=== PATIENT | female | born 2000 | race Caucasian/White ===

== ENCOUNTER 2019-10-16 04:28 | Emergency (ER) | payer MEDICAID, SELFPAY ==
[2019-10-16] VITALS (7 sets, daily range): BP systolic 113–121; BP diastolic 61–76; PULSE 70–91; RESP 16; TEMP 36.7; O2SAT 98–100; BMI 28.5
--- NOTE | 2019-10-16 04:29 | PC.NURSE ---
patient is 8 weeks , patient states she has a headache 10/10, chest pain rating 3/10. per patient, chest pain started at 0100 tonight after her right arm numbness.
--- NOTE | 2019-10-16 04:53 | XR_ITS ---
WS: [id number] PORTABLE CHEST HISTORY: cp COMPARISON: None available. Lungs are clear and well expanded. No pleural effusion or pneumothorax. Cardiac size: Normal. Mediastinum/Aorta: Normal mediastinum. No osseous abnormality seen. XR/XR chest 1V portable [id number] IMPRESSION: Unremarkable portable chest.
--- NOTE | 2019-10-16 04:57 | W.ED.CHESTPA ---
Documented by User: Beni Simental DO 10/16/19 05:57 HPI - Chest Pain General: Chief Complaint: Chest Pain Stated Complaint: HEADACHE Time Seen by Provider: 10/16/19 04:34 History of Present Illness: HPI narrative: 19-year-old female, states that she is 8 weeks , presents with right arm paresthesias, numbness to the tongue and face on the right side, and chest discomfort with headache starting around 1 AM. States that she was awake when this started. She has had headaches in the past, and notes that she has had CTs and MRIs that were negative. She had an ultrasound a couple of weeks ago showing a 6-week intrauterine , which is where she gets her 8-week dates. No fever, no shortness of breath, numbness is essentially resolved save some residual to the right upper extremity MD complaint: chest pain Onset (ago): hour(s) (4) Timing of current episode: episodic Prior episodes: No Onset: during rest Pain location: substernal and right chest Pain radiation: right arm Severity: moderate Quality: sharp Relieving factors: nothing Exacerbating factors: nothing Associated symptoms: Reports nausea; Deny dyspnea, fever(s), palpitations or vomiting Review of Systems Const: Denies: fever Eyes: Denies: change in vision or blurry vision ENMT: Denies: painful swallowing, Change in hearing, nose bleeds, post nasal drip or facial/sinus pain Card: Reports: chest pain; Denies: palpitations, irregular heart rhythm or edema Resp: Denies: shortness of breath, productive cough, non-productive cough or wheezing GI: Reports: nausea; Denies: vomiting : Denies: painful urination or blood in urine Musc: Denies: neck pain, back pain, redness or joint warmth Skin/Breast: Denies: rash, itching or redness Neuro: Reports: headache and dizziness; Denies: vertigo, confusion or seizure-like activity Psych: Denies: anxiety PFSH ED PFSH: Social History Smoking and tobacco status: former smoker Physical Exam Const: GENERAL APPEARANCE: well developed ORIENTATION/CONSCIOUSNESS: Yes oriented to person, Yes oriented to place and Yes oriented to time HENMT: COMMON NORMALS: normocephalic, external ears normal and external nose normal HEAD & SCALP: normocephalic; no scalp tenderness FACE & SINUS: normal facial exam NOSE: external nose normal and no nasal discharge EXTERNAL EAR: Yes external ears normal MOUTH: tongue normal THROAT: posterior oropharynx normal Eye: COMMON NORMALS: PERRL, EOMs intact bilaterally and conjunctivae normal EYELID: eyelids normal CONJUNCTIVA: Yes conjunctivae normal PUPIL: Yes PERRL Neck/C-Spine: COMMON NORMALS: full ROM GENERAL: No tracheal deviation Chest: COMMONS NORMALS: inspection of chest normal CHEST: No tenderness Resp: COMMON NORMALS: clear to auscultation bilaterally EFFORT & INSPECTION: No tachypneic, No respiratory distress, No retractions, No uses accessory muscles and No tracheal deviation AUSCULTATION: clear to auscultation bilaterally, no rhonchi, no wheezes and lung sounds not diminished Cardio: COMMON NORMALS: regular rate and regular rhythm RATE: regular rate RHYTHM: regular rhythm HEART SOUNDS: no murmurs PERIPHERAL PULSES: radial pulses present GI: INSPECTION: No abdominal distension AUSCULTATION: No hyperactive bowel sounds and No hypoactive bowel sounds PALPATION: Yes tender Details: Negative for other (epigastric), Yes guarding and No rigid PERCUSSION: no dullness to percussion and no tympanic to percussion : COMMON NORMALS: Yes no CVA tenderness BLADDER/KIDNEY EXAM: Yes no CVA tenderness Back/Pelvis: COMMON NORMALS: no CVA tenderness Neuro: SENSORIUM/ORIENTATION: Yes oriented to person, Yes oriented to place and Yes oriented to time Psych: COMMON NORMALS: mental status grossly normal Skin: COMMON NORMALS: no rashes or lesions noted GENERAL SKIN EXAM: no rashes or lesions noted Course Vital Signs: Vital signs: Vital Signs Temperature 98.1 F 10/16/19 04:28 Pulse Rate 70 10/16/19 06:36 Respiratory Rate 16 10/16/19 06:36 Blood Pressure 117/68 10/16/19 06:36 Pulse Oximetry 99 10/16/19 06:36 MDM - Chest Pain MDM Narrative: Medical decision making narrative: 19-year-old female with paresthesias to the right upper extremity, and right face. She has a headache. She is complaining of some chest pain. No cough, no fever. She says she is 8 weeks . Paresthesias are essentially resolved. She still has a headache. Labs are pending. She will be checked out to Dr. Coelho at shift change. Lab Data: Labs: Lab Results 10/16/19 10/16/19 10/16/19 Range/Units 05:25 05:46 05:46 WBC 7.9 (4.5-13.0) 10^3/ uL RBC 5.03 (4.1-5.3) 10^6/u L Hgb 14.1 (11.5-15.3) g/dL Hct 45.3 (37.0-47.0) % MCV 90.1 (81-99) fL MCH 28.0 (28.0-34.0) pg MCHC 31.1 (30.0-36.0) g/dL RDW 13.0 (12.1-15.1) % Plt Count 210 (130-400) 10^3/c mm MPV 11.3 H (7.4-10.4) fL Neut % (Auto) 77.7 % Lymph % (Auto) 16.3 % [place] % (Auto) 4.7 % Eos % (Auto) 0.5 % Baso % (Auto) 0.5 % Neut # (Auto) 6.1 (1.8-8.0) 10^3/u L Lymph # (Auto) 1.3 L (1.5-6.5) 10^3/u L [place] # (Auto) 0.4 (0.2-0.9) 10^3/u L Eos # (Auto) 0.0 (0.0-0.8) 10^3/u L Baso # (Auto) 0.0 (0.0-0.1) 10^3/u L Nucleated RBC % (a uto) 0 % Nucleated RBCs # 0.0 /100WBC Sodium 137 (136-145) mmol/L Potassium 3.9 (3.5-5.1) mmol/L Chloride 103 (98-107) mmol/L Carbon Dioxide 21 L (22-29) mmol/L Anion Gap 16.9 (5-19) BUN 10 (6-20) mg/dL Creatinine 0.6 (0.5-0.9) mg/dL GFR Calculation 127.5 (90-130) mL/min Glucose 98 (65-115) mg/dL Calculated Osmolal ity 280 L (285-295) mOsm/k g Calcium 9.7 (8.5-10.5) mg/dL Total Bilirubin 0.4 (0.15-1.2) mg/dL AST 21 (0-32) U/L ALT 15 (0-33) U/L Alkaline Phosphata se 82 (35-105) IU/L Total Protein 8.3 (6.6-8.7) g/dL Albumin 4.9 (3.5-5.2) g/dL Globulin 3.4 (1.3-4.6) g/dL Ser , Kiko i-Qnt 618790.00 mIU/mL Urine Color Yellow (Yellow) Urine Appearance Clear (CLEAR) Urine pH 5 (5-7) Ur Specific Gravit y 1.015 (1.005-1.030) Urine Protein Neg (Negative) Urine Glucose (UA) Norm (Normal) Urine Ketones 1+ H (Negative) Urine Blood Neg (Negative) Urine Nitrate Negative (Negative) Urine Bilirubin Neg (NEGATIVE) Urine Urobilinogen Norm (Negative) mg/dL Ur Leukocyte Gayle ase Negative (Negative) Discharge Plan Discharge Patient Disposition: Home, Self-Care Clinical Impression: Atypical chest pain Condition: Stable Discharge Diet: Usual diet Discharge Activity: Resume usual activity Activity Restrictions/Additional Instructions: Aloe up with your primary care doctor as needed return if you have further problems. Sign Out Sign Out Data: Patient Sign Out occurred on 10/16/19 at 06:48. Patient's care was discussed, and care was transferred from to Anson Coelho DO. Coding Level of Care Code ED Cardiac Cath Tech for Chg Fwd Exam Comprehensive Documented by User: Anson Coelho DO 10/16/19 07:00 HPI - Chest Pain General: Chief Complaint: Chest Pain Stated Complaint: HEADACHE Time Seen by Provider: 10/16/19 04:34 History of Present Illness: HPI narrative: 19-year-old female who was initially seen by Dr. Simental. Care assumed by myself at change of shift [facility] ED PFSH: Social History Smoking and tobacco status: former smoker Course Vital Signs: Vital signs: Vital Signs Temperature 98.1 F 10/16/19 04:28 Pulse Rate 70 10/16/19 06:36 Respiratory Rate 16 10/16/19 06:36 Blood Pressure 117/68 10/16/19 06:36 Pulse Oximetry 99 10/16/19 06:36 MDM - Chest Pain MDM Narrative: Medical decision making narrative: Reviewed case with Dr. Simental. Patient reports she previously had an ultrasound that confirmed an intrauterine her labs remain normal she has no evidence of hypoxia tachycardia or tachypnea. Chest x-ray was unremarkable as is no fever. At this point I do not see any signs of her having significant respiratory compromise neurologically she is intact we will go ahead and discharge her home have her follow-up with her primary care doctor she can return if she has further problems. Lab Data: Attestation: I reviewed the patient's lab results. Labs: Lab Results 10/16/19 10/16/19 10/16/19 Range/Units 05:25 05:46 05:46 WBC 7.9 (4.5-13.0) 10^3/ uL RBC 5.03 (4.1-5.3) 10^6/u L Hgb 14.1 (11.5-15.3) g/dL Hct 45.3 (37.0-47.0) % MCV 90.1 (81-99) fL MCH 28.0 (28.0-34.0) pg MCHC 31.1 (30.0-36.0) g/dL RDW 13.0 (12.1-15.1) % Plt Count 210 (130-400) 10^3/c mm MPV 11.3 H (7.4-10.4) fL Neut % (Auto) 77.7 % Lymph % (Auto) 16.3 % [place] % (Auto) 4.7 % Eos % (Auto) 0.5 % Baso % (Auto) 0.5 % Neut # (Auto) 6.1 (1.8-8.0) 10^3/u L Lymph # (Auto) 1.3 L (1.5-6.5) 10^3/u L [place] # (Auto) 0.4 (0.2-0.9) 10^3/u L Eos # (Auto) 0.0 (0.0-0.8) 10^3/u L Baso # (Auto) 0.0 (0.0-0.1) 10^3/u L Nucleated RBC % (a uto) 0 % Nucleated RBCs # 0.0 /100WBC Sodium 137 (136-145) mmol/L Potassium 3.9 (3.5-5.1) mmol/L Chloride 103 (98-107) mmol/L Carbon Dioxide 21 L (22-29) mmol/L Anion Gap 16.9 (5-19) BUN 10 (6-20) mg/dL Creatinine 0.6 (0.5-0.9) mg/dL GFR Calculation 127.5 (90-130) mL/min Glucose 98 (65-115) mg/dL Calculated Osmolal ity 280 L (285-295) mOsm/k g Calcium 9.7 (8.5-10.5) mg/dL Total Bilirubin 0.4 (0.15-1.2) mg/dL AST 21 (0-32) U/L ALT 15 (0-33) U/L Alkaline Phosphata se 82 (35-105) IU/L Total Protein 8.3 (6.6-8.7) g/dL Albumin 4.9 (3.5-5.2) g/dL Globulin 3.4 (1.3-4.6) g/dL Ser , Kiko i-Qnt 581269.00 mIU/mL Urine Color Yellow (Yellow) Urine Appearance Clear (CLEAR) Urine pH 5 (5-7) Ur Specific Gravit y 1.015 (1.005-1.030) Urine Protein Neg (Negative) Urine Glucose (UA) Norm (Normal) Urine Ketones 1+ H (Negative) Urine Blood Neg (Negative) Urine Nitrate Negative (Negative) Urine Bilirubin Neg (NEGATIVE) Urine Urobilinogen Norm (Negative) mg/dL Ur Leukocyte Gayle ase Negative (Negative) Discharge Plan Discharge Patient Disposition: Home, Self-Care Clinical Impression: Atypical chest pain Condition: Stable Discharge Diet: Usual diet Discharge Activity: Resume usual activity Activity Restrictions/Additional Instructions: Aloe up with your primary care doctor as needed return if you have further problems. Sign Out Sign Out Data: Patient Sign Out occurred on 10/16/19 at 06:48. Patient's care was discussed, and care was transferred from to Anson Coelho DO. Coding Level of Care Code ED Cardiac Cath Tech for Chg Fwd Exam Comprehensive
[2019-10-16 05:53] LABS: Basophils % 0.5 %; Eosinophils % 0.5 %; Hematocrit 45.3 % (37.0-47.0); Hemoglobin 14.1 g/dL (11.5-15.3); Lymphocytes # 1.3 10^3/uL (1.5-6.5); Lymphocytes % 16.3 %; Mean Corpuscular HGB Conc 31.1 g/dL (30.0-36.0); Mean Corpuscular Volume 90.1 fL (81-99); Mean Platelet Volume 11.3 fL (7.4-10.4); Monocytes # 0.4 10^3/uL (0.2-0.9); Monocytes % 4.7 %; Neutrophils # 6.1 10^3/uL (1.8-8.0); Neutrophils % 77.7 %; Nucleated Red Blood Cells % 0 %; Platelet Count 210 10^3/cmm (130-400); Red Blood Count 5.03 10^6/uL (4.1-5.3); White Blood Count 7.9 10^3/uL (4.5-13.0)
[2019-10-16 05:54] LABS: Add Urine Microscopic? NO
[2019-10-16 06:12] LABS: Bilirubin Urine Neg (NEGATIVE); Blood Urine Neg (Negative); Glucose Urine UA Norm (Normal); Ketones Urine 1+ (Negative); Leukocyte Esterase Urine Negative (Negative); Nitrate Urine Negative (Negative); Protein Urine Neg (Negative); Specific Gravity, Urine 1.015 (1.005-1.030); Urine Appearance Clear (CLEAR); Urine Color Yellow (Yellow); Urobilinogen Urine Norm (Negative); pH Urine 5 (5-7)
[2019-10-16] MEDS: morphine 4 mg/mL SDV 1 mL IVP (06:16)
[2019-10-16] MEDS: ondansetron 2 mg/ML SDV 2 mL 4 MG IVP (06:17)
[2019-10-16] MEDS: sodium chloride 0.9% 1,000 ML 999 ML IV (06:17)
[2019-10-16 06:23] LABS: Alanine Aminotransferase 15 U/L (0-33); Albumin Level 4.9 g/dL (3.5-5.2); Alkaline Phosphatase 82 IU/L (35-105); Anion Gap 16.9 (5-19); Aspartate Amino Transferase 21 U/L (0-32); Blood Urea Nitrogen 10 mg/dL (6-20); Calcium 9.7 mg/dL (8.5-10.5); Carbon Dioxide 21 mmol/L (22-29); Chloride 103 mmol/L (98-107); Globulin 3.4 g/dL (1.3-4.6); Glomerular Filtration Rate 127.5 mL/min (90-130); Glucose 98 mg/dL (65-115); Osmolality Calculated 280 mOsm/kg (285-295); Potassium 3.9 mmol/L (3.5-5.1); Sodium 137 mmol/L (136-145); Total Bilirubin 0.4 mg/dL (0.15-1.2); Total Protein 8.3 g/dL (6.6-8.7)
== END 2019-10-16 08:06 | disposition home or self-care (01) ==
PROVIDERS: Emergency Medicine; Emergency Provider Family Medicine
DX: O26.891 Other specified pregnancy related conditions, first trimester (principal); Z3A.08 8 weeks gestation of pregnancy; R07.89 Other chest pain
CPT/HCPCS: 12345; 36415; 71045; 80053; 81003; 84702; 85025; 96360; 96361; 96374; 96375; 99283; 99284; A9270; J2270; J2405; J2930; J7030

== ENCOUNTER → 2019-10-27 11:13 | Outpatient (BNVA) | payer MEDICAID, SELFPAY | PROVIDERS: Visit Provider Nurse Practitioner Women's Health | DX: Z01.89 Encounter for other specified special examinations (principal) | CPT/HCPCS: 84315 ==

== ENCOUNTER 2019-11-02 17:47 | Emergency (ER) | payer MEDICAID, SELFPAY ==
[2019-11-02 18:05] VITALS: BMI 28.5
[2019-11-02 18:09] VITALS: BP 113/74; PULSE 89; RESP 16; TEMP 36.8; O2SAT 99
--- NOTE | 2019-11-02 18:21 | USR_ITS ---
PROCEDURE INFORMATION: Exam: US First Trimester, Transabdominal and US , Transvaginal Exam date and time: 11/02/2019 7:27 PM Age: 19 years old Clinical indication: Lmp or gestational age (in weeks): 11w 3d; Other: Spotting; ; Additional info: Threatened ab TECHNIQUE: Imaging protocol: Real-time transabdominal obstetrical ultrasound of the maternal pelvis and a first trimester , less than 14 weeks 0 days, with image documentation. Transvaginal imaging was used for better evaluation of the fetus and adnexa. COMPARISON: No relevant prior studies available. FINDINGS: GESTATION: Gestation: Single viable intrauterine gestation. Yolk sac is unremarkable Heart rate: heart rate 176 bpm. Placenta: Small 1.4 x 0.4 x 1.1 cm central lucency along inferior margin of gestational sac, possible small subchorionic hematoma. Amniotic fluid: Amniotic fluid volume appears qualitatively normal. BIOMETRY: Estimated gestational age: 11 weeks 3 days MATERNAL: Uterus: Unremarkable. Cervix: Cervical length approximately 4.5 cm. Right adnexa: Homogeneous appearing right ovary measuring 3.4 x 1.7 x 3.6 cm. Blood flow documented. Left adnexa: Homogeneous appearing left ovary measuring 3.9 x 2.1 x 1.7 cm. Blood flow documented. Intraperitoneal: No intraperitoneal free fluid. US/US OB <= 14 weeks fetus [id number] IMPRESSION: 1.) Single viable intrauterine gestation around 11 weeks 3 days. 2.) Possible small approximately 1 cm subchorionic hematoma inferiorly.
--- NOTE | 2019-11-02 18:31 | ED_ITS ---
HPI - Abdominal Pain General: Chief Complaint: Abdominal Pain Stated Complaint: lower abd pain, preg x 10 weeks, bleeding Time Seen by Provider: 11/02/19 18:21 History of Present Illness: HPI narrative: Haily is a nice 19-year-old female who comes in complaining of bilateral lower abdominal pain. She describes the pain as cramping and constant. She is had some vaginal spotting today. The cramping began 2 days ago. The patient is approximately 10 weeks and 5 days. Patient denies any dysuria. She has had her typical vaginal discharge but denies any other bleeding except for the spotting that began today. Patient states that she is 4, para 1, aborta 1. Associated Symptoms: Denies chills, coffee ground emesis, constipation, GI cramping, diarrhea, dysuria, fever(s), hematochezia, hematuria, hematemesis, melena, nausea, syncope and vomiting Review of Systems General: Reports: other (negative unless marked) Const: Denies: fever, chills, body aches, fatigue, malaise or diaphoresis Eyes: Denies: change in vision or blurry vision ENMT: Denies: throat pain, painful swallowing, hoarseness, ear pain, ear disc harge, Change in hearing or nasal discharge Card: Denies: chest pain, palpitations, irregular heart rhythm, syncope, pre- syncope, shortness of breath on exertion or shortness of breath when lying down Resp: Denies: shortness of breath, productive cough, non-productive cough, wheezing, coughing up blood or chest congestion GI: Denies: nausea, vomiting, vomiting blood, coffee grounds in vomit, diarrhea, constipation, cramping, blood in stool or black tarry stool : Denies: flank pain, painful urination, urinary frequency, urinary urgency, decreased urine ouput, urinary incontinence or blood in urine Musc: Denies: neck pain, back pain, extremity pain, extremity swelling, joint pain, joint swelling, joint warmth or joint stiffness Skin/Breast: Denies: rash, skin tenderness or yellow skin Neuro: Denies: headache, numbness in extremities, weakness in extremities, changes in sensation, lack of coordination, difficulty walking, dizziness, vertigo or confusion Endo: Denies: excessive thirst, tired all the time, cold intolerance, excessive sweating, flushing or hot flashes Carlo/Lymph: Denies: easy bruising, easy bleeding, petechiae or enlarged lymph nodes All/Imm: Denies: hives, throat swelling, tongue swelling, facial swelling or acute wheezing PFSH ED PFSH: Medical History PCOS (polycystic ovarian syndrome) (~2017) Surgical History No pertinent past surgical history Social History Smoking and tobacco status: never smoked Alcohol intake: never Female Reproductive History: : 4 Physical Exam Const: COMMON NORMALS: no apparent distress, oriented x3, no limitations, healthy appearing and well nourished EXAM LIMITATIONS: no altered mental status GENERAL APPEARANCE: cooperative, well kempt and well developed ORIENTATION/CONSCIOUSNESS: Yes awake HENMT: COMMON NORMALS: normocephalic, head/scalp atraumatic, hearing grossly normal bilaterally, external ears normal, EAC's normal, external nose normal and moist oral mucous membranes HEAD & SCALP: normal to inspection, normocephalic and atraumatic FACE & SINUS: normal facial exam and face symmetric NOSE: external nose normal and nares normal EXTERNAL EAR: Yes external ears normal EXTERNAL AUDITORY CANAL: EAC's normal MOUTH: oral and palatal mucosa normal and tongue normal Eye: COMMON NORMALS: PERRL, EOMs intact bilaterally, conjunctivae normal and no scleral icterus GENERAL EYE: normal appearance of both eyes and normal light reflex CONJUNCTIVA: Yes conjunctivae normal SCLERA: sclerae normal CORNEA: Yes corneas normal PUPIL: Yes PERRL DIRECT OPHTHALMOSCOPY: Yes normal light reflex Neck/C-Spine: COMMON NORMALS: full ROM, no lymphadenopathy, supple, no meningeal signs and no JVD GENERAL: Yes normal visual inspection and Yes trachea midline CERVICAL SPINE: Yes cervical ROM normal Chest: COMMONS NORMALS: inspection of chest normal and palpation of chest normal Resp: COMMON NORMALS: normal respiratory effort, no retractions, no use of accessory muscles and clear to auscultation bilaterally EFFORT & INSPECTION: Yes able to speak in complete sentences AUSCULTATION: clear to auscultation bilaterally Cardio: COMMON NORMALS: no JVD, regular rate, regular rhythm, S1 normal heart sound, S2 normal heart sound, no gallops, no clicks, no murmurs and no rub JUGULAR VENOUS DISTENTION: no JVD RATE: regular rate RHYTHM: regular rhythm HEART SOUNDS: S1 normal and S2 normal GI: COMMON NORMALS: soft to palpation, non-tender, no hepatosplenomegaly and no masses INSPECTION: Yes normal to inspection PALPATION: Yes soft and Yes no hepatosplenomegaly : COMMON NORMALS: Yes no CVA tenderness, Yes external appearance normal, Yes appearance of the vagina normal, Yes appearance of the cervix normal, Yes bimanual exam normal, Yes adnexae non-tender and Yes no adnexal masses BLADDER/KIDNEY EXAM: Yes no CVA tenderness SPECULUM EXAM - CERVIX: No cervical os open, Yes cervical os closed and No cervical tenderness BIMANUAL EXAM - VAGINA & UTERUS: Yes normal bimanual exam, Yes normal cervical palpation, No cervical motion tenderness and No cervical tenderness BIMANUAL EXAM - ADNEXA, OTHER: Yes normal adnexae, No adnexal tenderness and No adnexal mass OB/EXTERNAL & SPECULUM: No cervical os open Back/Pelvis: COMMON NORMALS: no CVA tenderness, thoracic and lumbar spine normal to inspection, no thoracic nor lumbar tenderness and thoraco-lumbar ROM normal Extremity: COMMON NORMALS: normal to inspection, full ROM, normal capillary refill, no joint enlargement, no clubbing, cyanosis or edema and no calf tenderness Neuro: COMMON NORMALS: oriented x3, CN's II-XII intact bilaterally, moves all extremities, no focal motor deficits and no sensory deficits noted MENINGEAL SIGNS: Yes no meningeal signs Psych: COMMON NORMALS: mental status grossly normal, thought process normal, cooperative, affect normal, speech normal and activity/motor behavior normal APPEARANCE: Yes well kempt SPEECH: Yes normal speech THOUGHT PROCESS: normal thought process Skin: COMMON NORMALS: no rashes or lesions noted, skin turgor normal, no jaundice, no petechiae and no mottling GENERAL SKIN EXAM: no rashes or lesions noted and turgor normal Course Vital Signs: Vital signs: Vital Signs Temperature 98.3 F 11/02/19 18:09 Pulse Rate 74 11/02/19 21:53 Respiratory Rate 84 H 11/02/19 21:53 Blood Pressure 116/76 11/02/19 21:53 Pulse Oximetry 99 11/02/19 21:53 MDM - Abdominal Pain MDM Narrative: Medical decision making narrative: 2129 -the patient states she cannot wait any longer for her lab results. Her ride is leaving and she has no other way to get home. At this point her urinalysis appears negative and her ultrasound is good. Her blood type is Rh+ and her CBC is normal. On exam I saw no 7 of cervical motion tenderness or pelvic inflammatory disease. The patient's pains have subsided as well. I would discharge her home AMA at her request and try to reach her by phone if there is any abnormalities. Patient understands the risks she is taking but at this time was to proceed with discharge. Lab Data: Attestation: I reviewed the patient's lab results. Labs: Lab Results 11/02/19 11/02/19 11/02/19 Range/Units 18:40 18:40 18:59 WBC 8.4 (4.5-13.0) 10^3/ uL RBC 4.67 (4.1-5.3) 10^6/u L Hgb 13.3 (11.5-15.3) g/dL Hct 40.4 (37.0-47.0) % MCV 86.5 (81-99) fL MCH 28.5 (28.0-34.0) pg MCHC 32.9 (30.0-36.0) g/dL RDW 13.2 (12.1-15.1) % Plt Count 208 (130-400) 10^3/c mm MPV 11.5 H (7.4-10.4) fL Neut % (Auto) 68.8 % Lymph % (Auto) 24.0 % Harrison % (Auto) 5.6 % Eos % (Auto) 0.8 % Baso % (Auto) 0.4 % Neut # (Auto) 5.8 (1.8-8.0) 10^3/u L Lymph # (Auto) 2.0 (1.5-6.5) 10^3/u L Harrison # (Auto) 0.5 (0.2-0.9) 10^3/u L Eos # (Auto) 0.1 (0.0-0.8) 10^3/u L Baso # (Auto) 0.0 (0.0-0.1) 10^3/u L Nucleated RBC % (a uto) 0 % Nucleated RBCs # 0.0 /100WBC Sodium (136-145) mmol/L Potassium (3.5-5.1) mmol/L Chloride (98-107) mmol/L Carbon Dioxide (22-29) mmol/L Anion Gap (5-19) BUN (6-20) mg/dL Creatinine (0.5-0.9) mg/dL GFR Calculation (90-130) mL/min Glucose (65-115) mg/dL Calculated Osmolal ity (285-295) mOsm/k g Calcium (8.5-10.5) mg/dL Total Bilirubin (0.15-1.2) mg/dL AST (0-32) U/L ALT (0-33) U/L Alkaline Phosphata se (35-105) IU/L Total Protein (6.6-8.7) g/dL Albumin (3.5-5.2) g/dL Globulin (1.3-4.6) g/dL Lipase (13-60) U/L HCG, Qual Positive H (Negative) Ser , Kiko i-Qnt mIU/mL Urine Color Yellow (Yellow) Urine Appearance Clear (CLEAR) Urine pH 5 (5-7) Ur Specific Gravit y 1.020 (1.005-1.030) Urine Protein Neg (Negative) Urine Glucose (UA) Norm (Normal) Urine Ketones 1+ H (Negative) Urine Blood Neg (Negative) Urine Nitrate Negative (Negative) Urine Bilirubin Neg (NEGATIVE) Urine Urobilinogen 1 H (Negative) mg/dL Ur Leukocyte Gayle ase Negative (Negative) Urine RBC Rare (0-2) /hpf Urine WBC Rare (0-5) /hpf Ur Squamous Epith Cells Rare (0-5) Amorphous Sediment Not Reportable Urine Bacteria Trace (NONE) Urine Mucus 1+ Blood Type Rho(D) Type 11/02/19 11/02/19 11/02/19 Range/Units 18:59 18:59 19:45 WBC (4.5-13.0) 10^3/ uL RBC (4.1-5.3) 10^6/u L Hgb (11.5-15.3) g/dL Hct (37.0-47.0) % MCV (81-99) fL MCH (28.0-34.0) pg MCHC (30.0-36.0) g/dL RDW (12.1-15.1) % Plt Count (130-400) 10^3/c mm MPV (7.4-10.4) fL Neut % (Auto) % Lymph % (Auto) % Harrison % (Auto) % Eos % (Auto) % Baso % (Auto) % Neut # (Auto) (1.8-8.0) 10^3/u L Lymph # (Auto) (1.5-6.5) 10^3/u L Harrison # (Auto) (0.2-0.9) 10^3/u L Eos # (Auto) (0.0-0.8) 10^3/u L Baso # (Auto) (0.0-0.1) 10^3/u L Nucleated RBC % (a uto) % Nucleated RBCs # /100WBC Sodium 139 (136-145) mmol/L Potassium 3.6 (3.5-5.1) mmol/L Chloride 103 (98-107) mmol/L Carbon Dioxide 20 L (22-29) mmol/L Anion Gap 19.6 H (5-19) BUN 7 (6-20) mg/dL Creatinine 0.5 (0.5-0.9) mg/dL GFR Calculation 157.3 H (90-130) mL/min Glucose 105 (65-115) mg/dL Calculated Osmolal ity 284 L (285-295) mOsm/k g Calcium 9.6 (8.5-10.5) mg/dL Total Bilirubin 0.2 (0.15-1.2) mg/dL AST 15 (0-32) U/L ALT 12 (0-33) U/L Alkaline Phosphata se 73 (35-105) IU/L Total Protein 7.3 (6.6-8.7) g/dL Albumin 4.2 (3.5-5.2) g/dL Globulin 3.1 (1.3-4.6) g/dL Lipase 28 (13-60) U/L HCG, Qual (Negative) Ser , Kiko i-Qnt 94827.00 mIU/mL Urine Color (Yellow) Urine Appearance (CLEAR) Urine pH (5-7) Ur Specific Gravit y (1.005-1.030) Urine Protein (Negative) Urine Glucose (UA) (Normal) Urine Ketones (Negative) Urine Blood (Negative) Urine Nitrate (Negative) Urine Bilirubin (NEGATIVE) Urine Urobilinogen (Negative) mg/dL Ur Leukocyte Gayle ase (Negative) Urine RBC (0-2) /hpf Urine WBC (0-5) /hpf Ur Squamous Epith Cells (0-5) Amorphous Sediment Urine Bacteria (NONE) Urine Mucus Blood Type O Positive Rho(D) Type Positive Imaging Data ^: US: Radiologist's impression: [address] [address] Ultrasound Report Signed Patient: Haily العلي #: [id number] : 2000Acct#:[id number] Age/Sex: 19 FADM Date: 11/02/19 Loc: ERRoom/Bed: Attending Dr: Ordering Provider/Ordering MD: Santosh Kim MD Date of Service: 11/02/19 Procedure(s): US OB <= 14 weeks fetus [id number] Accession Number(s): [id number] Report Number: [id number] PROCEDURE INFORMATION: Exam: US First Trimester, Transabdominal and US , Transvaginal Exam date and time: 11/02/2019 7:27 PM Age: 19 years old Clinical indication: Lmp or gestational age (in weeks): 11w 3d; Other: Spotting; ; Additional info: Threatened ab TECHNIQUE: Imaging protocol: Real-time transabdominal obstetrical ultrasound of the maternal pelvis and a first trimester , less than 14 weeks 0 days, with image documentation. Transvaginal imaging was used for better evaluation of the fetus and adnexa. COMPARISON: No relevant prior studies available. FINDINGS: GESTATION: Gestation: Single viable intrauterine gestation. Yolk sac is unremarkable Heart rate: heart rate 176 bpm. Placenta: Small 1.4 x 0.4 x 1.1 cm central lucency along inferior margin of gestational sac, possible small subchorionic hematoma. Amniotic fluid: Amniotic fluid volume appears qualitatively normal. BIOMETRY: Estimated gestational age: 11 weeks 3 days MATERNAL: Uterus: Unremarkable. Cervix: Cervical length approximately 4.5 cm. Right adnexa: Homogeneous appearing right ovary measuring 3.4 x 1.7 x 3.6 cm. Blood flow documented. Left adnexa: Homogeneous appearing left ovary measuring 3.9 x 2.1 x 1.7 cm. Blood flow documented. Intraperitoneal: No intraperitoneal free fluid. US/US OB <= 14 weeks fetus [id number] IMPRESSION: 1.) Single viable intrauterine gestation around 11 weeks 3 days. 2.) Possible small approximately 1 cm subchorionic hematoma inferiorly. Dictated By:Ramone Werner MD Signed By:Ramone Werner MDSigned Date/Time:11/02/191958 DD/ 57 Discharge Plan Discharge Patient Disposition: Left Against Medical Advice Clinical Impression: Threatened miscarriage Condition: Stable Prescriptions: No Action promethazine 25 mg tablet 25 mg PO TID PRN (Reason: UNKNOWN) RF: 0 pyridoxine (vitamin B6) 25 mg lozenge 25 mg PO DAILY RF: 0 Unisom (doxylamine) 25 mg tablet 25 mg PO BEDTIME PRN (Reason: Sleep) RF: 0 Discharge Orders: Discharge Order (Routine); Ordered 11/02/19 Ordered By: Gela Rosado Referrals: Kath Crouch MD [Physician] - 1-3 days Discharge Diet: Advance as tolerated Discharge Activity: Increase activity as tolerated Patient Instructions: Threatened Miscarriage (ED) Activity Restrictions/Additional Instructions: You're leaving AGAINST MEDICAL ADVICE and are at risk for or severe permanent disability by doing so. You are more than welcome to return at any time for recheck and for further evaluation and care suture change you change your mind. We will try to call you with the remainder of your lab results. If your symptoms change or worsen in any way please return to the ER immediately for recheck. Stand Alone Forms: Against Medical Advice Discharge Date/Time: 11/02/19 21:56 Coding Level of Care Code ED Decorative Engraver for Yamile Fwd Exam Comprehensive
[2019-11-02 19:07] VITALS: BP 114/72; PULSE 78; RESP 16; O2SAT 99
[2019-11-02 19:17] LABS: Basophils % 0.4 %; Eosinophils # 0.1 10^3/uL (0.0-0.8); Eosinophils % 0.8 %; Hematocrit 40.4 % (37.0-47.0); Hemoglobin 13.3 g/dL (11.5-15.3); Mean Corpuscular HGB Conc 32.9 g/dL (30.0-36.0); Mean Corpuscular Hemoglobin 28.5 pg (28.0-34.0); Mean Corpuscular Volume 86.5 fL (81-99); Mean Platelet Volume 11.5 fL (7.4-10.4); Monocytes # 0.5 10^3/uL (0.2-0.9); Monocytes % 5.6 %; Neutrophils # 5.8 10^3/uL (1.8-8.0); Neutrophils % 68.8 %; Nucleated Red Blood Cells % 0 %; Platelet Count 208 10^3/cmm (130-400); Red Blood Count 4.67 10^6/uL (4.1-5.3); Red Cell Distribution Width 13.2 % (12.1-15.1); White Blood Count 8.4 10^3/uL (4.5-13.0)
[2019-11-02 19:27] LABS: HCG Qualitative Urine. Positive (Negative)
[2019-11-02 19:35] LABS: Glucose Urine UA Norm (Normal); Protein Urine Neg (Negative); Urine Appearance Clear (CLEAR); Urine Color Yellow (Yellow); pH Urine 5 (5-7)
[2019-11-02 19:36] LABS: Bilirubin Urine Neg (NEGATIVE); Blood Urine Neg (Negative); Ketones Urine 1+ (Negative); Leukocyte Esterase Urine Negative (Negative); Nitrate Urine Negative (Negative); Urobilinogen Urine 1 mg/dL (Negative)
[2019-11-02] MEDS: sodium chloride 0.9% 1,000 ML 999 ML IV ×2 (20:26→20:27)
[2019-11-02 21:53] VITALS: BP 116/76; PULSE 74; RESP 84; O2SAT 99
[2019-11-02 23:21] LABS: Alanine Aminotransferase 12 U/L (0-33); Albumin Level 4.2 g/dL (3.5-5.2); Alkaline Phosphatase 73 IU/L (35-105); Anion Gap 19.6 (5-19); Aspartate Amino Transferase 15 U/L (0-32); Blood Urea Nitrogen 7 mg/dL (6-20); Calcium 9.6 mg/dL (8.5-10.5); Carbon Dioxide 20 mmol/L (22-29); Chloride 103 mmol/L (98-107); Globulin 3.1 g/dL (1.3-4.6); Glomerular Filtration Rate 157.3 mL/min (90-130); Glucose 105 mg/dL (65-115); Lipase 28 U/L (13-60); Osmolality Calculated 284 mOsm/kg (285-295); Potassium 3.6 mmol/L (3.5-5.1); Sodium 139 mmol/L (136-145); Total Bilirubin 0.2 mg/dL (0.15-1.2); Total Protein 7.3 g/dL (6.6-8.7)
[2019-11-03 00:02] LABS: Add Urine Microscopic? YES
[2019-11-03 00:12] LABS: Bacteria Urine TRACE; Mucus Urine 1+; RBC Urine RARE /hpf (0-2); Squamous Epithelial Cell Urine RARE (0-5); WBC Urine RARE /hpf (0-5)
== END 2019-11-02 21:56 | disposition left against medical advice (07) ==
PROVIDERS: Emergency Medicine; Emergency Provider Emergency Medicine
DX: O20.0 Threatened abortion (principal); Z3A.11 11 weeks gestation of pregnancy; Z53.21 Procedure and treatment not carried out due to patient leaving prior to being seen by health care provider
CPT/HCPCS: 12345; 36415; 76801; 80053; 81001; 81003; 81025; 83690; 84702; 85025; 86900; 87491; 87591; 96360; 96361; 99283; J7030

== ENCOUNTER → 2019-11-10 09:18 | Outpatient (BNVA) | payer MEDICAID, SELFPAY | PROVIDERS: Visit Provider Obstetrics & Gynecology | DX: Z34.80 Encounter for supervision of other normal pregnancy, unspecified trimester (principal); Z34.90 Encounter for supervision of normal pregnancy, unspecified, unspecified trimester; Z87.59 Personal history of other complications of pregnancy, childbirth and the puerperium | CPT/HCPCS: 80307; 82950; 84315; 84443; 86592; 86762; 86803; 86850; 87340; 87806 ==

== ENCOUNTER → 2019-11-16 09:32 | Outpatient (BNVA) | payer MEDICAID, SELFPAY | PROVIDERS: Visit Provider Obstetrics & Gynecology | DX: O09.91 Supervision of high risk pregnancy, unspecified, first trimester (principal); Z87.59 Personal history of other complications of pregnancy, childbirth and the puerperium; O23.40 Unspecified infection of urinary tract in pregnancy, unspecified trimester; E07.9 Disorder of thyroid, unspecified; O21.9 Vomiting of pregnancy, unspecified; E28.2 Polycystic ovarian syndrome; O34.00 Maternal care for unspecified congenital malformation of uterus, unspecified trimester; Q51.20 Other doubling of uterus, unspecified | CPT/HCPCS: 80053; 84315 ==

== ENCOUNTER 2019-11-28 11:54 | Outpatient (CLI) | payer MEDICAID, SELFPAY ==
[2019-11-28 14:33] LABS: Total Volume, Urine 625 mL
[2019-11-28 15:58] LABS: Total Protein 24 Hour Urine 78.8 mg/24HR (0-150); Urine Total Protein 24 Hour 12.6 mg/dL (0-150)
== END 2019-11-28 11:55 | disposition home or self-care (01) ==
LOC: LAB 11:55
PROVIDERS: Visit Provider Obstetrics & Gynecology
DX: Z87.59 Personal history of other complications of pregnancy, childbirth and the puerperium (principal)
CPT/HCPCS: 84156

== ENCOUNTER → 2019-12-10 11:23 | Outpatient (BNVA) | payer MEDICAID, SELFPAY | PROVIDERS: Visit Provider Nurse Practitioner Women's Health | DX: O09.91 Supervision of high risk pregnancy, unspecified, first trimester; Z3A.00 Weeks of gestation of pregnancy not specified | CPT/HCPCS: 81000 ==

== ENCOUNTER 2020-01-20 19:19 | Outpatient (CLI) | payer MEDICAID, SELFPAY ==
[2020-01-20] VITALS (10 sets, daily range): BP systolic 0–135; BP diastolic 0–57; PULSE 88–112; RESP 16; TEMP 36.6–36.9; BMI 27.1
--- NOTE | 2020-01-20 19:42 | US_ITS ---
WS: [id number] Limited obstetrical ultrasound. HISTORY: contractions. Single intrauterine gestation is identified with heart rate at 147 bpm. Cervix is closed at 5.0 cm. Amniotic fluid index: 16.7 cm which is just above the 50th percentile. Placenta, no previa or abruption. US/US OB limited [id number] IMPRESSION: Normal amniotic fluid. Cervix is closed. No cervical insufficiency.
[2020-01-20] MEDS: terbutaline 1 mg/mL INJ 0.25 MG SUBCUT (20:21)
[2020-01-20 20:49] LABS: Add Urine Microscopic? YES; Bilirubin Urine 1+ (NEGATIVE); Blood Urine Neg (Negative); Glucose Urine UA Norm (Normal); Ketones Urine Negative (Negative); Leukocyte Esterase Urine 1+ (Negative); Nitrate Urine Negative (Negative); Protein Urine Neg (Negative); Specific Gravity, Urine 1.025 (1.005-1.030); Urine Appearance Cloudy (CLEAR); Urine Color Dark Yellow (Yellow); Urobilinogen Urine 1 mg/dL (Negative); pH Urine 5 (5-7)
[2020-01-20 20:50] LABS: Mucus Urine 4+
[2020-01-20 20:51] LABS: Add Urine Culture? No; Bacteria Urine 1+; RBC Urine 0-4 /hpf (0-2); WBC Urine 0-4 /hpf (0-5)
== END 2020-01-20 21:55 | disposition home or self-care (01) ==
LOC: OPOB 19:20 → OBGYN 21:51
PROVIDERS: Visit Provider Obstetrics & Gynecology
DX: O26.899 Other specified pregnancy related conditions, unspecified trimester (principal); Z34.00 Encounter for supervision of normal first pregnancy, unspecified trimester; R10.9 Unspecified abdominal pain
CPT/HCPCS: 76815; 81001; 81003; 96372; 99211; J3105

== ENCOUNTER → 2020-01-24 08:21 | Outpatient (BNVA) | payer MEDICAID, SELFPAY | PROVIDERS: Visit Provider Obstetrics & Gynecology | DX: O34.02 Maternal care for unspecified congenital malformation of uterus, second trimester (principal); Q51.20 Other doubling of uterus, unspecified; Z3A.22 22 weeks gestation of pregnancy; Z87.59 Personal history of other complications of pregnancy, childbirth and the puerperium | CPT/HCPCS: 81000; 83986 ==

== ENCOUNTER → 2020-02-07 08:22 | Outpatient (BNVA) | payer MEDICAID, SELFPAY | PROVIDERS: Visit Provider Obstetrics & Gynecology | DX: O09.91 Supervision of high risk pregnancy, unspecified, first trimester (principal); O34.00 Maternal care for unspecified congenital malformation of uterus, unspecified trimester; Z87.59 Personal history of other complications of pregnancy, childbirth and the puerperium; B37.3 Candidiasis of vulva and vagina | CPT/HCPCS: 81000 ==

== ENCOUNTER → 2020-03-06 13:11 | Outpatient (BNVA) | payer MEDICAID, SELFPAY | PROVIDERS: Visit Provider Obstetrics & Gynecology | DX: O09.91 Supervision of high risk pregnancy, unspecified, first trimester (principal); Z87.59 Personal history of other complications of pregnancy, childbirth and the puerperium; Q51.20 Other doubling of uterus, unspecified | CPT/HCPCS: 80053; 81000; 82950; 84550; 85027 ==

== ENCOUNTER 2020-03-18 16:22 | Outpatient (CLI) | payer MEDICAID, SELFPAY ==
[2020-03-18 17:03] VITALS: RESP 17; TEMP 36.9
[2020-03-18 17:04] VITALS: BMI 28.5
[2020-03-19 10:20] LABS: Nitrazine Paper, PH Negative
== END 2020-03-18 17:47 | disposition home or self-care (01) ==
LOC: OPOB 16:38 → OBGYN 17:41
PROVIDERS: Visit Provider Obstetrics & Gynecology
DX: O26.899 Other specified pregnancy related conditions, unspecified trimester (principal); Z3A.00 Weeks of gestation of pregnancy not specified; R10.9 Unspecified abdominal pain
CPT/HCPCS: 83986; 99211

== ENCOUNTER 2020-03-21 16:27 | Outpatient (CLI) | payer MEDICAID, SELFPAY ==
[2020-03-21 16:40] VITALS: BP 119/66; PULSE 116; BMI 28.8
[2020-03-21 17:22] VITALS: RESP 17; TEMP 36.8
== END 2020-03-21 17:30 | disposition home or self-care (01) ==
LOC: OPOB 16:32 → OBGYN 16:33
PROVIDERS: Visit Provider Obstetrics & Gynecology
DX: O26.899 Other specified pregnancy related conditions, unspecified trimester (principal); Z3A.00 Weeks of gestation of pregnancy not specified; R10.9 Unspecified abdominal pain
CPT/HCPCS: 59025; 82570; 84156; 84315; 99211

== ENCOUNTER → 2020-03-28 15:03 | Outpatient (BNVA) | payer MEDICAID, SELFPAY | PROVIDERS: Visit Provider Obstetrics & Gynecology | DX: O42.90 Premature rupture of membranes, unspecified as to length of time between rupture and onset of labor, unspecified weeks of gestation (principal); Z3A.00 Weeks of gestation of pregnancy not specified | CPT/HCPCS: 81000; 83986 ==

== ENCOUNTER → 2020-04-03 08:10 | Outpatient (BNVA) | payer MEDICAID, SELFPAY | PROVIDERS: Visit Provider Obstetrics & Gynecology | DX: Z34.90 Encounter for supervision of normal pregnancy, unspecified, unspecified trimester (principal) | CPT/HCPCS: 81000 ==

== ENCOUNTER → 2020-04-12 08:07 | Outpatient (BNVA) | payer MEDICAID, SELFPAY | PROVIDERS: Visit Provider Obstetrics & Gynecology | DX: Z34.90 Encounter for supervision of normal pregnancy, unspecified, unspecified trimester (principal) | CPT/HCPCS: 81000 ==

== ENCOUNTER 2020-04-19 21:01 | Outpatient (CLI) | payer MEDICAID, SELFPAY ==
[2020-04-19] VITALS (15 sets, daily range): BP systolic 0–129; BP diastolic 0–71; PULSE 88–116; RESP 17; TEMP 36.6; O2SAT 98; BMI 29.3
[2020-04-19 21:36] LABS: Nitrazine Paper, PH Negative
[2020-04-19 21:50] LABS: Protein Urine Neg (Negative); Urine Appearance Clear (CLEAR); Urine Color Yellow (Yellow); pH Urine 6 (5-7)
[2020-04-19 21:51] LABS: Bilirubin Urine Neg (Negative); Blood Urine Neg (Negative); Glucose Urine UA 1+ (Normal); Ketones Urine 1+ (Negative); Leukocyte Esterase Urine Negative (Negative); Nitrate Urine Negative (Negative); Urobilinogen Urine 4 mg/dL (Negative)
[2020-04-19 21:59] LABS: Add Urine Microscopic? YES
[2020-04-19 22:09] LABS: Bacteria Urine TRACE /hpf; Mucus Urine 2+ /hpf; RBC Urine RARE /hpf (0-2); Squamous Epithelial Cell Urine RARE /hpf (0-5); WBC Urine RARE /hpf (0-5)
[2020-04-19] MEDS: terbutaline 1 mg/mL INJ 0.25 MG SUBCUT (23:20)
[2020-04-20 00:14] VITALS: BP 134/57; PULSE 118
[2020-04-20 00:29] VITALS: BP 113/68; PULSE 105
[2020-04-20] MEDS: terbutaline 1 mg/mL INJ 0.25 MG SUBCUT (00:30)
[2020-04-20 00:34] VITALS: BP 113/68; PULSE 102; RESP 16; TEMP 36.6; O2SAT 100
[2020-04-20 00:35] VITALS: PULSE 110; O2SAT 100
[2020-04-20 00:40] VITALS: PULSE 109; O2SAT 100
[2020-04-20 00:45] VITALS: PULSE 117; O2SAT 100
== END 2020-04-20 00:54 | disposition home or self-care (01) ==
LOC: OPOB 21:03 → OBGYN 21:27
PROVIDERS: Obstetrics & Gynecology; Visit Provider Pharmacist
DX: O26.899 Other specified pregnancy related conditions, unspecified trimester (principal); Z3A.00 Weeks of gestation of pregnancy not specified; R10.9 Unspecified abdominal pain
CPT/HCPCS: 59025; 81001; 83986; 96372; 99211; J3105

== ENCOUNTER 2020-04-29 01:48 | Outpatient (CLI) | payer MEDICAID, SELFPAY ==
[2020-04-29] VITALS (14 sets, daily range): BP systolic 0–119; BP diastolic 0–75; PULSE 80–92; RESP 18; BMI 29.3
== END 2020-04-29 05:43 | disposition home or self-care (01) ==
LOC: OPOB 02:02 → OBGYN 02:06
PROVIDERS: Visit Provider Obstetrics & Gynecology
DX: O26.899 Other specified pregnancy related conditions, unspecified trimester (principal); Z3A.00 Weeks of gestation of pregnancy not specified
CPT/HCPCS: 59025; 83986; 99211

== ENCOUNTER 2020-05-01 08:37 | Inpatient (IN) | payer MEDICAID, SELFPAY ==
[2020-05-01] VITALS (24 sets, daily range): BP systolic 0–225; BP diastolic 0–193; PULSE 67–102; RESP 16–18; TEMP 36.7–37.1; O2SAT 97–100; BMI 29.5
[2020-05-01] MEDS: dextrose 5%-lactated ringers 1,000 ML 125 ML IV (09:05)
[2020-05-01] MEDS: oxytocin 30 UNIT/500 ML BAG 600 UNIT IV (09:20)
[2020-05-01] MEDS: lactated ringers 1,000 ML 999 ML IV (09:30)
--- NOTE | 2020-05-01 09:48 | P.PCNOB_ITS ---
Delivery Note: Date of delivery: May 01, 2020 Pre-delivery diagnoses: 1. labor at 36-4/7 weeks gestation 2. Anemia in in third trimester. Post-delivery diagnoses: 1. labor with delivery in third trimester at 36-4/7 weeks gestation. 2. Anemia in - delivered 3. Viable female infant. Procedure: Spontaneous vaginal delivery Op report anesthesia: None Delivering Physician: Dr. Holger Gambino Estimated blood loss (mL): 200 Pre-Delivery Course: Patient is a 20-year-old white female 4, para 1-0-2-1 with an LMP in 2017 and an EDC of 05/25/2020 based on a 6-week ultrasound, which places her at 36-4/7 weeks gestation. She presented to labor and delivery at 08:35 on 05/01/2020 complaining of contractions. She was reported to be 6 cm dilated at the time and irvin regularly. GBS prophylaxis was ordered due to unknown GBS status. Due to reported penicillin anaphylaxis, vancomycin was ordered. However, she was progressing rapidly and did not get the antibiotic. She was found to be completely dilated at 09:07 with bulging membranes present. Delivery: Artificial rupture of membranes was performed at 09:16 with clear fluid present. She started pushing at 09:17 and delivered at 09:18 as a spontaneous vaginal delivery of a right occiput transverse presentation female infant over an intact perineum under no anesthesia. Following delivery of the infant's head, one loop of nuchal cord was noted and reduced. The rest the infant delivered atraumatically with the left shoulder anterior. Baby was spontaneously crying. It was placed on the mother's abdomen where the cord was clamped and cut. Baby was left in the care of the waiting nurses. Cord blood was obtained. Pitocin bolus was started. Placenta delivered intact by simple expression at 09:20. The cervix and vagina were palpated and noted to be intact. The labia were inspected. She had a second-degree midline perineal laceration which was repaired with 3-0 Vicryl suture under local infiltration with 2% lidocaine plain. She also had scattered superficial labial lacerations and a first-degree laceration between the clitoris and the urethra with swelling and bruising present. FINDINGS 1. Viable female infant weighing 6 pounds 11 ounces with a length of 20-1/2 inches and Apgars of 8 at 1 minute and 9 at 5 minutes. 2. Three-vessel cord with 1 loop of nuchal cord present. 3. Normal-appearing placenta with a central cord insertion. Post-Delivery Status: Mother and infant were left to recover in satisfactory condition. Because of the laceration between the clitoris and the urethra with the swelling and bruising, patient will be watched for potential urinary retention. Potential need for catheter was discussed with the nurses and patient. A&P Assessment and plan (1) Anemia during , delivered, current hospitalization: Status: Acute (2) labor third trimester with delivery third trimester, not ap plicable or unspecified: Status: Acute Coding Level of Care Code Acute Contract Officer for Chg Fwd Diagnoses labor third trimester with delivery third trimester, not applicable or unspecified O60.14X0 Anemia during , delivered, current hospitalization O99.02
[2020-05-01] MEDS: lidocaine 2% INJ 20 mL INJECTION (09:59)
[2020-05-01 10:02] LABS: Basophils # 0.1 10^3/uL (0.0-0.1); Basophils % 0.5 %; Eosinophils # 0.1 10^3/uL (0.0-0.8); Eosinophils % 0.6 %; Hematocrit 35.1 % (37.0-47.0); Lymphocytes % 21.6 %; Mean Corpuscular HGB Conc 31.3 g/dL (30.0-36.0); Mean Corpuscular Hemoglobin 26.2 pg (28.0-34.0); Mean Corpuscular Volume 83.6 fL (81-99); Mean Platelet Volume 11.6 fL (7.4-10.4); Monocytes # 0.7 10^3/uL (0.2-0.9); Monocytes % 7.4 %; Neutrophils # 6.43 10^3/uL (1.8-7.7); Neutrophils % 68.8 %; Nucleated Red Blood Cells % 0 %; Platelet Count 304 10^3/cmm (130-400); Red Cell Distribution Width 14.7 % (12.1-15.1); White Blood Count 9.4 10^3/uL (4.0-10.0)
[2020-05-01] MEDS: benzocaine-menthol 78 gm Canister 1 SPRAY TOPICAL (12:22)
[2020-05-01] MEDS: lanolin oint 7 gm 1 APPLIC TOPICAL (12:22)
[2020-05-01] MEDS: ibuprofen 800 mg tablet PO ×2 (14:45→22:36)
[2020-05-02 05:10] VITALS: BP 121/72; PULSE 71; RESP 16; TEMP 36.6; O2SAT 95
[2020-05-02 06:24] LABS: Hematocrit 31.8 % (37.0-47.0); Hemoglobin 9.6 g/dL (11.5-15.3); Mean Corpuscular HGB Conc 30.2 g/dL (30.0-36.0); Mean Corpuscular Hemoglobin 25.7 pg (28.0-34.0); Mean Platelet Volume 11.4 fL (7.4-10.4); Platelet Count 249 10^3/cmm (130-400); Red Blood Count 3.74 10^6/uL (4.1-5.3); Red Cell Distribution Width 14.6 % (12.1-15.1); White Blood Count 9.9 10^3/uL (4.0-10.0)
[2020-05-02] MEDS: prenatal vitamin Capsule 1 CAP PO (07:53)
[2020-05-02] MEDS: ibuprofen 800 mg tablet PO (07:54)
[2020-05-02 09:18] LABS: Coronavirus Lab Test PTC Negative
[2020-05-02 11:17] VITALS: BP 124/78; PULSE 82; RESP 14; TEMP 37.1
--- NOTE | 2020-05-02 13:34 | P.DS_ITS ---
Discharge Providers SHIPPING AND RECEIVING MATERIAL HANDLER Date of Admission: 05/01/20 08:37 Date of Discharge: 05/02/20 Attending Provider at Admission: Holger Gambino MD Attending Provider at Discharge: Holger Gambino MD Diagnoses at Discharge Discharge Diagnosis (1) labor third trimester with delivery third trimester, not applicable or unspecified: Status: Acute (2) Anemia during , delivered, current hospitalization: Status: Acute Reason for Visit Reason for Visit: Contractions Hospital Course Hospital Course: Patient is a 20-year-old white female 4, para 1-0-2-1 with an LMP in 2017 and an EDC of 05/25/2020 based on a 6-week ultrasound, which placed her at 36-4/7 weeks gestation. She presented to L&D on 05/01/2020 at 08:35 with complaint of contractions. She was 6 cm dilated and irvin regularly. She progressed rapidly and was found to be completely dilated by 09:07 with bulging membranes present. Due to the rapid labor, she did not receive antibiotics for unknown GBS status Artificial rupture membranes with clear fluid was performed at 09:16 and she d elivered at 09:18 as a spontaneous vaginal delivery of a right occiput transverse presentation of a female weighing 6 lbs 11 oz with a length of 20-1/2 inches and Apgars of 8 at 1 minute and 9 at 5 minutes. Patient had a second-degree perineal laceration which was repaired. She had scattered superficial labial lacerations and a first-degree laceration in the midline between the clitoris and urethra. This was hemostatic and did not require repair. Following delivery mother and were doing well. Day 1 Patient reports that she is doing well. She is tolerating a regular diet without nausea or vomiting. She is ambulating without lightheadedness or dizziness. She denied any shortness of breath or chest pain. She stated that her pain was well controlled. She denied problems with urination. She stated that her bleeding was slowing. Physical Exam: See below. Plan Patient was anemic following delivery. She had been diagnosed with being anemic during and was supposed to be taking iron orally. She will be continued on oral iron after discharge. Patient is being discharged with plan to room-in with baby since baby is not being released at this time. Discharge instructions were discussed with her. She is to follow-up in the office with Dr. Marie in approximately 6 weeks for exam. Information Peripartum Data: Delivery Method: Vaginal Physical Exam Const: COMMON NORMALS: no acute distress, average body habitus, alert and well nourished GENERAL APPEARANCE: well developed ORIENTATION/CONSCIOUSNESS: Yes oriented to person, Yes oriented to place and Yes oriented to time Resp: COMMON NORMALS: normal respiratory effort and clear to auscultation bilaterally AUSCULTATION: clear to auscultation bilaterally Cardio: COMMON NORMALS: regular rate, regular rhythm, No gallops present (Cardio) and No rub (Cardio) RATE: regular rate RHYTHM: regular rhythm GI: COMMON NORMALS: Soft to palpation, non-tender, No hepatosplenomegaly pr esent and no masses (Except for nontender uterus, approximately 1 fingerbreadth below umbilicus.) AUSCULTATION: Yes normoactive bowel sounds PALPATION: Yes Soft to palpation, Yes No hepatosplenomegaly present and No Hernia present : EXTERNAL FEMALE EXAM: No Hernia present Extremity: COMMON NORMALS: no calf tenderness NARRATIVE EXTREMITY EXAM: Trace lower extremity edema. Neuro: SENSORIUM/ORIENTATION: Yes alert, Yes oriented to person, Yes oriented to place and Yes oriented to time Psych: COMMON NORMALS: normal affect MOOD & AFFECT: Yes euthymic mood Discharge Data Data Completed and Pending: Labs from last 24 hours 05/02/20 05/01/20 06:00 09:18 WBC 9.9 RBC 3.74 L Hgb 9.6 L Hct 31.8 L MCV 85.0 MCH 25.7 L MCHC 30.2 RDW 14.6 Plt Count 249 MPV 11.4 H Nasal/Oral COVID-1 9 PCR Negative Vitals: Last Vital Signs Temp 98.7 F 05/02/20 11:17 Pulse 82 05/02/20 11:17 Resp 14 05/02/20 11:17 BP 124/78 05/02/20 11:17 Pulse Ox 95 05/02/20 05:10 Discharge Plan Discharge Patient Disposition: Home Condition: Stable Prescriptions: New tramadol 50 mg Tablet 50 - 100 mg PO Q6H PRN (Reason: Moderate To Severe Pain) Qty: 20 RF: 0 ibuprofen 800 mg Tablet 800 mg PO TID PRN (Reason: pain) Qty: 30 RF: 0 Continued acetaminophen [Tylenol Extra Strength] 500 mg tablet 500 mg PO DAILY PRN (Reason: PAIN) RF: 0 aspirin 81 mg tablet,delayed release (DR/EC) 81 mg PO DAILY RF: 0 ferrous sulfate 325 mg (65 mg iron) tablet,delayed release (DR/EC) 325 mg PO BID Qty: 180 RF: 1 Discharge Orders: Discharge Order (Routine); Ordered 05/02/20 Ordered By: Holger Gambino Referrals: Kath Crouch MD [Physician] - 6 Weeks ( exam) Discharge Diet: Regular Discharge Activity: Limit activity as instructed Patient Instructions: OB Vaginal Deliveries - [facility] Discharge Attestations SHIPPING AND RECEIVING MATERIAL HANDLER Time Spent in Discharge Care*: less than 30 min Coding Level of Care Code Acute Vegetable Grader for Chg Fwd Diagnoses labor third trimester with delivery third trimester, not hyun licable or unspecified O60.14X0 Anemia during , delivered, current hospitalization O99.02
[2020-05-02 16:15] VITALS: BP 118/80; PULSE 93; RESP 16; TEMP 36.8; O2SAT 98
== END 2020-05-02 16:35 | disposition home or self-care (01) | DRG 807 ==
PROVIDERS: Admitting Provider Obstetrics & Gynecology; Visit Provider Obstetrics & Gynecology
DX: O60.14X0 Preterm labor third trimester with preterm delivery third trimester, not applicable or unspecified (principal); Z37.0 Single live birth; Z3A.36 36 weeks gestation of pregnancy; O99.02 Anemia complicating childbirth; D64.9 Anemia, unspecified; O69.81X0 Labor and delivery complicated by cord around neck, without compression, not applicable or unspecified; O70.1 Second degree perineal laceration during delivery
CPT/HCPCS: 12345; 36415; 51702; 59025; 59409; 85025; 85027; 87635; 98960; 99211

== ENCOUNTER → 2020-06-12 10:40 | Outpatient (BNVA) | payer MEDICAID, SELFPAY | PROVIDERS: Visit Provider Obstetrics & Gynecology | DX: Z01.419 Encounter for gynecological examination (general) (routine) without abnormal findings (principal); R30.0 Dysuria | CPT/HCPCS: 81000; 81025; 87077; 87086; 87184; 87624; 88175 ==

== ENCOUNTER → 2020-08-18 11:20 | Outpatient (BNVA) | payer MEDICAID, SELFPAY | PROVIDERS: Visit Provider Obstetrics & Gynecology | DX: N91.2 Amenorrhea, unspecified (principal) | CPT/HCPCS: 84702 ==